=== PATIENT | male | born 1960 ===

== ENCOUNTER 2024-12-16 07:22 | Observation (INO) | payer OTHER ==
[2024-12-13 15:43] LABS: Absolute Eosinophils 0.1 K/uL (0-0.5); Absolute Lymphocytes (CBC) 2.2 K/uL (0.7-4.9); Absolute Monocytes 1.2 K/uL (0.1-1.3); Absolute Neutrophil 6.2 K/uL (1.8-8.0); Basophils % 0.4 % (0-1.3); Eosinophils % 1.2 % (0-4.4); Hematocrit 43.2 % (39.6-49.0); Hemoglobin 15.3 g/dL (13.6-17.9); Lymphocytes % 22.4 % (15.3-44.8); MCH 30.6 pg (27.0-35.0); MCHC 35.4 g/dL (32.0-36.0); MCV 86.6 fL (80-100); MPV 6.5 fL (7.6-11.3); Monocytes % 12.6 % (3.3-12.3); Neutrophils % 63.4 % (41.7-73.7); Nucleated Red Blood Cells % 0.1 % (0-0); Platelets 345 thou/uL (152-406); RBC Red Blood Cell Count 4.99 M/uL (4.33-5.43); Red Cell Distribution Width 13.5 % (12.1-15.2)
[2024-12-13 15:44] LABS: Anion Gap 10.9 mEq/L (5.0-15.0); Potassium 3.9 mEq/L (3.5-5.1)
[2024-12-16] MEDS ORDERED: Ringers Lactate 1,000 ML IV ONE (07:50)
[2024-12-16] MEDS ORDERED: propofoL 200 MG/20 ML VIAL IV ONE (08:24)
[2024-12-16] MEDS ORDERED: LIDOCAINE 1% MPF 5 ML VIAL ONE ×2 (08:24→09:29)
[2024-12-16] MEDS ORDERED: NA CHLORIDE 0.9% 100 ML ONE (09:21)
[2024-12-16] MEDS ORDERED: dexAMETHasone 10 MG/ML VIAL ONE (09:21)
[2024-12-16] MEDS: ALBUTEROL 2.5 MG/3 ML NEB SOL ONE ×2 (09:41→13:29)
--- NOTE | 2024-12-16 10:43 | RAD REPORT ---
EXAMINATION: ONE VIEW CHEST XR CLINICAL INDICATION: Male, 64 years old.,R/O ASPIRATION TECHNIQUE: Frontal chest projection is submitted. Examination is limited by patient positioning and t echnique. COMPARISON: No prior exam. FINDINGS: The lungs are well inflated and clear. No pneumothorax or sizable effusion. The heart is normal in s ize. Mediastinal contours are unremarkable. IMPRESSION: No acute intrathoracic abnormalities.
[2024-12-16] MEDS ORDERED: SUCCINYLCHOLINE 20 MG/ML (10 ML) IV ONE (11:49)
[2024-12-16] MEDS ORDERED: ONDANSETRON 4 MG/2 ML VIAL IV PRN (12:48)
[2024-12-16] MEDS ORDERED: ACETAMINOPHEN 500 MG TAB PO PRN (12:48)
[2024-12-16] MEDS ORDERED: MORPHINE 2 MG/ML SYR IV PRN (12:48)
--- OUTSIDE RECORDS SUMMARY | 2024-12-16 14:15 | XMS REPORT | Continuity of Care Document ---
Author Name Unknown Address [address] [place] [address] [place] [address] [address] [place] [address] Care Team Providers Care Yard Driver Name Role Phone Slade Vo Attending Clinician Unavailable Encounters Start Date/Time End Date/Time Encounter Type Admission Type Attending Clinicians Care Facility Care Department Encounter ID Source 2023-07-25 14:30:02 Outpatient Slade Vo [facility] [id number] [facility]
[2024-12-16 16:36] VITALS: O2SAT 90
[2024-12-16 16:48] VITALS: BP 129/74; TEMP 98.3
[2024-12-16] MEDS: METHYLPREDNISOLONE 40 MG INJ IV ONE (17:05)
[2024-12-16] MEDS: PIPER TAZO 3.375 GM in NA CHLORIDE 0.9% 100 ML IV SCH (17:47)
[2024-12-16 18:11] VITALS: BMI 29.5
[2024-12-16] MEDS: FLU (Fluarix Triv) TS24-25(6MOS UP)/PF 45 MCG/0.5 ML Syringe IM ONE (18:15)
[2024-12-16] MEDS: NA CHLORIDE 0.9% 1,000 ML IV SCH (18:24)
[2024-12-16] MEDS: METHYLPREDNISOLONE 125 MG INJ IV SCH (18:24)
[2024-12-16] MEDS ORDERED: PNEUMOCOCCAL VACCINE 0.5 ML IMVAC ONE (19:00)
--- NOTE | 2024-12-16 19:15 | P.HP ---
Certification for Inpatient Patient admitted to: Observation With expected LOS: <2 Midnights Patient will require the following post-hospital care: None Practitioner: I am a practitioner with admitting privileges, knowledge of patient current condition, hospital course, and medical plan of care. Services: Services provided to patient in accordance with Admission requirements found in Title 42 Section 412.3 of the Code of Federal Regulations Patient History Date of Service: 12/16/24 Reason for admission: Status post colonoscopy with possible aspiration History of Present Illness: patient is a 64-year-old gentleman who came to the hospital for colonoscopy. After the colonoscopy patient had nausea and vomiting and was felt like he may have aspirated. However, chest x-ray does not show any aspiration. Patient was given nebs and steroids and antibiotics. Patient is clinically feeling much better. Patient will be admitted to the hospital will monitor him. Will get another dose of antibiotics and will continue monitoring him in the hospital. If his oxygen level stays stable they should be able to discharge in next 24 hours. Allergies No Known Allergies Allergy (Verified 12/16/24 08:57) Home Medications: Amlodipine [Norvasc*] 5 mg PO BEDTIME 12/13/24 Biotin 10,000 mcg PO DAILY 12/13/24 Magnesium Oxide,Aspartate,Citr [Triple Magnesium Complex] 400 mg PO DAILY 12/13/24 Multivit-Min/Folic/Vit K/Lycop [Men's 50 Plus Daily Formula Tb] 1 each PO DAILY 12/13/24 Albuterol Inhaler [Ventolin Inhaler*] 2 puff IH Q6H PRN #1 inh 12/16/24 Amox/Clavulanate [Augmentin 875-125 Tab] 1 each PO BID #14 tab 12/16/24 Benzonatate [Tessalon Perle] 200 mg PO TID #20 cap 12/16/24 predniSONE [Deltasone] 20 mg PO BID #10 tab 12/16/24 - Past Medical/Surgical History Diabetic: No Past Medical History: Patient denies medical history Past Surgical History: Patient denies surgical history - Family History Father Family History: Reviewed- Non-Contributory - Social History Smoking Status: Current every day smoker Alcohol use: Yes CD- Drugs: No Caffeine use: Yes Place of Residence: Home Review of Systems 10-point ROS is otherwise unremarkable Physical Examination - Vital Signs Temperature: 98.3 F Blood Pressure: 129/74 Pulse: 94 Respirations: 16 Pulse Ox (%): 92 - Physical Exam General: Alert, In no apparent distress, Oriented x3 HEENT: Atraumatic, PERRLA, Mucous membr. moist/pink, EOMI, Sclerae nonicteric Neck: Supple, 2+ carotid pulse no bruit, No LAD, Without JVD or thyroid abnormality Respiratory: Clear to auscultation bilaterally, Normal air movement Cardiovascular: Regular rate/rhythm, Normal S1 S2, No murmurs Gastrointestinal: Normal bowel sounds, Soft and benign, Non-distended, No tenderness Musculoskeletal: No clubbing, No swelling, No tenderness Integumentary: No rashes Neurological: Normal gait, Normal speech, Normal strength at 5/5 x4 extr, Normal tone, Sensation intact, Cranial nerves 3-12 intact, Normal affect Lymphatics: No axilla or inguinal lymphadenopathy Assessment & Plan - Problems (Diagnosis) (1) Aspiration pneumonia Status: Acute - Plan Plan: 1. Continue monitor oxygenation 2. Continue with antibiotic therapy 3. Continue with steroids 4. Check room air oxygen on ambulation 5. Gi DVT prophylaxis Discharge Plan: Home Plan to discharge in: Greater than 2 days - Advance Directives Does patient have a Living Will: No Does patient have a Durable POA for Healthcare: No - Code Status/Comfort Care Code Status Assessed: Yes Code Status: Full Code Critical Care: No Time Spent Managing PTS Care (In Minutes): 45
[2024-12-16] MEDS ORDERED: AMLODIPINE 5 MG TAB PO ONE (19:16)
--- NOTE | 2024-12-17 11:01 | EKG ---
Test Date: 2024-12-16 Test Time: 08:33:16 Digital Analytics Manager: AUBREE MEASUREMENT RESULTS: Intervals: Rate: 97 DE: 110 QRSD: 94 QT: 350 QTc: 444 Advance: P: 64 DE: 110 QRS: 86 T: 69 INTERPRETIVE STATEMENTS: Sinus rhythm with short DE Nonspecific ST abnormality Abnormal ECG Compared to ECG 12/13/2024 16:12:26 Short DE interval now present ST (T wave) deviation now present Electronically Signed On 12-17-24 10:57:42 CDT by Santy Dooley
--- NOTE | 2024-12-17 11:15 | EKG ---
Test Date: 2024-12-13 Test Time: 16:12:26 Oil Sprayer: HAZEL MEASUREMENT RESULTS: Intervals: Rate: 66 ND: 128 QRSD: 104 QT: 392 QTc: 410 [place]: P: 51 ND: 128 QRS: 84 T: 72 INTERPRETIVE STATEMENTS: Normal sinus rhythm Normal ECG No previous ECG available for comparison Electronically Signed On 12-17-24 11:04:05 CDT by Santy Dooley
--- NOTE | 2024-12-20 12:46 | P.DS ---
Discharge Date: 12/16/24 Disposition: ROUTINE DISCHARGE Discharge Condition: GOOD Reason for Admission: Status post colonoscopy with possible aspiration - Problems (1) Aspiration pneumonia Status: Acute Brief History of Present Illness: patient is a 64-year-old gentleman who came to the hospital for colonoscopy. After the colonoscopy patient had nausea and vomiting and was felt like he may have aspirated. However, chest x-ray does not show any aspiration. Patient was given nebs and steroids and antibiotics. Patient is clinically feeling much better. Patient will be admitted to the hospital will monitor him. Will get another dose of antibiotics and will continue monitoring him in the hospital. If his oxygen level stays stable they should be able to discharge in next 24 hours. Hospital Course: patient is clinically doing well. Patient's oxygen is saturations are stable. Patient's oxygen saturations are in the high 90s. Patient is clinically doing well and patient is stable for discharge. Will continue with steroids and antibiotics. Follow-up with surgery for biopsy results. Vital Signs/Physical Exam: Temp Pulse Resp BP Pulse Ox 98.3 F 94 H 16 129/74 92 12/20/24 12:44 12/20/24 12:44 12/20/24 12:44 12/20/24 12:44 12/20/24 12:44 General: Alert, In no apparent distress, Oriented x3 Laboratory Data at Discharge: WBC 9.70 thou/uL (4.3-10.9) 12/13/24 15:08 Hgb 15.3 g/dL (13.6-17.9) 12/13/24 15:08 Hct 43.2 % (39.6-49.0) 12/13/24 15:08 Plt Count 345 thou/uL (152-406) 12/13/24 15:08 Sodium 142 mEq/L (136-145) 12/13/24 15:08 Potassium 3.9 mEq/L (3.5-5.1) 12/13/24 15:08 BUN 18 mg/dL (7-18) 12/13/24 15:08 Creatinine 1.10 mg/dL (0.70-1.30) 12/13/24 15:08 Glucose 90 mg/dL (74-106) 12/13/24 15:08 Home Medications: Amlodipine [Norvasc*] 5 mg PO BEDTIME 12/13/24 Biotin 10,000 mcg PO DAILY 12/13/24 Magnesium Oxide,Aspartate,Citr [Triple Magnesium Complex] 400 mg PO DAILY 12/13/24 Multivit-Min/Folic/Vit K/Lycop [Men's 50 Plus Daily Formula Tb] 1 each PO DAILY 12/13/24 Albuterol Inhaler [Ventolin Inhaler*] 2 puff IH Q6H PRN #1 inh 12/16/24 Amox/Clavulanate [Augmentin 875-125 Tab] 1 each PO BID #14 tab 12/16/24 Benzonatate [Tessalon Perle] 200 mg PO TID #20 cap 12/16/24 predniSONE [Deltasone] 20 mg PO BID #10 tab 12/16/24 New Medications: Amox/Clavulanate [Augmentin 875-125 Tab] 1 each PO BID #14 tab predniSONE [Deltasone] 20 mg PO BID #10 tab Benzonatate [Tessalon Perle] 200 mg PO TID #20 cap Albuterol Inhaler [Ventolin Inhaler*] 2 puff IH Q6H PRN #1 inh PRN Reason: Shortness Of Breath Physician Discharge Instructions: -DC IV and DC home -Follow-up with PCP in 1 to 2 weeks -Follow-up with Pulmonary for COPD evaluation in 1 to 2 weeks -Follow-up with Surgery, Dr. Arzate, in 1 to 2 weeks -Please call Dr. Rios at [phone] if any questions regarding hospital stay -Please call nursing station at [phone] if any nursing or medication questions -Return to the emergency room if symptoms worsen Diet: Low sodium Activity: Fall precautions Followup: Slade Vo, [Primary Care Provider] - Time spent managing pt's care (in minutes): 35
== END 2024-12-16 21:20 | disposition home or self-care (01) ==
LOC: OR 07:22 → 2ND 12:48
PROVIDERS: ADMIT Hospitalist; ATTEND Hospitalist
PROC: 0DBL8ZX Excision of Transverse Colon, Via Natural or Artificial Opening Endoscopic, Diagnostic (ICD-10-PCS; principal; 2024-12-16 08:30)
DX: R19.5 Other fecal abnormalities (principal); D12.3 Benign neoplasm of transverse colon; J18.9 Pneumonia, unspecified organism; R11.2 Nausea with vomiting, unspecified
CPT/HCPCS: 93005 ×2; 85025; 80048; 36415; 88305; 71045; 94010; 45384; J2704; J2003 ×2; J2543; J7613 ×2; J1100; J2919 ×2; J7120; J7030; G0379; G0378